=== PATIENT | female | born 1950 | race Caucasian/White ===

== ENCOUNTER → 2017-10-27 | Outpatient (CLI) | payer MEDICARE, OTHER ==
--- NOTE | 2017-10-30 17:24 | RADIOLOGY IMAGING REPORT ---
[place] [facility] [place] NAME: TIAGO MONTENEGRO : [id number] MR: [id number] V: [id number] EXAM DATE: ORDERING PHYSICIAN: LUCILLE GRANDE TECHNOLOGIST: Sana Gates PROCEDURE:BILATERAL DIGITAL SCREENING MAMMOGRAM WITH CAD ASSISTED INTERPRETATION & 3D TOMOSYNTHESIS COMPARISON:Prior mammograms 10/24/16, 10/23/15, 09/24/14, 10/07/13. INDICATIONS:SCREENING FINDINGS: A small amount of fibroglandular tissue is seen throughout the breasts. The parenchymal pattern has remained stable allowing for difference in mammographic technique & patient positioning. There is no evidence of malignant appearing mass, malignant appearing calcifications or other secondary sign of malignancy in either breast. DIAGNOSTIC CATEGORY 1--NEGATIVE. RECOMMENDATIONS: ROUTINE MAMMOGRAM AND CLINICAL EVALUATION. IMPRESSION: BIRADS 1: Negative. No significant abnormality is seen. Dictated by: Nancie Daniels M.D. on 10/30/2017 at 10:11 Transcribed by: MARCELLA on 10/30/2017 at 11:08 Approved by: Nancie Daniels M.D. on 10/30/2017 at 17:23 [facility]
== END ==
LOC: MAMO 02:59
PROVIDERS: ATTEND Nurse Practitioner Family
DX: Z12.31 Encounter for screening mammogram for malignant neoplasm of breast (principal)
CPT/HCPCS: 77063; 77067

== ENCOUNTER → 2018-02-05 | Outpatient (CLI) | payer MEDICARE ==
--- NOTE | 2018-02-05 09:05 | RADIOLOGY IMAGING REPORT ---
[place] [facility] [place] Leeann Beth : 1950 MR: [id number] V: [id number] EXAM DATE: ORDERING PHYSICIAN: LUCILLE GRANDE TECHNOLOGIST: Location: [facility] - [place] Patient: Leeann Beth : 1950 Visit/Account:[id number] Date of Sevice: 02/05/2018 Right upper abdomen ultrasound. HISTORY: Right upper quadrant pain, nausea and vomiting. COMPARISON: None. The liver measures 11.0 cm in sagittal length. The liver parenchyma is minimally heterogeneous. The l iver is free of focal defects. The surface of the liver is smooth. The portal vein is patent. No intr a or extrahepatic biliary dilatation. The gallbladder is unremarkable. The sonographic Dumont's sign is negative. The pancreas is unremarkable. The right kidney is normal in size. No hydronephrosis. No ascites. Portions of the abdominal aorta and inferior vena cava are obscured. The spleen and left kid antonie were not included. The common bile duct measures 4 mm in greatest AP diameter. IMPRESSION: Minimal fatty infiltration of the liver. Otherwise negative right upper abdomen. Report Dictated By: Rex Casillas MD at 02/05/2018 8:59 AM Report E-Signed By: Rex Casillas MD at 02/05/2018 9:00 AM WSN:[id number]
== END ==
LOC: US 01:07
PROVIDERS: ATTEND Nurse Practitioner Family
DX: K76.0 Fatty (change of) liver, not elsewhere classified (principal)
CPT/HCPCS: 76705

== ENCOUNTER → 2018-11-16 | Outpatient (CLI) | payer MEDICARE ==
--- NOTE | 2018-11-16 15:28 | RADIOLOGY IMAGING REPORT ---
FACILITY: [facility] - [place] PATIENT NAME: TIAGO MONTENEGRO : [id number] MR: [id number] V: [id number] EXAM DATE: ORDERING PHYSICIAN: LUCILLE GRANDE TECHNOLOGIST: Sana Gates PROCEDURE:BILATERAL DIAGNOSTIC DIGITAL MAMMOGRAM WITH CAD ASSISTED INTERPRETATION & 3D TOMOSYNTHESIS. REASON FOR STUDY: Right breast wound in the approximate 7 o'clock position. FAMILY HISTORY OF BREAST CANCER: None. BREAST PROCEDURES/TREATMENTS: Benign surgical biopsy of the Left breast. COMPARISON STUDIES: 10/27/17, 10/24/16, 10/23/15, 09/24/14. MAMMOGRAM VIEWS OBTAINED: Bilateral 2D & 3D full field CC & MLO projections. BREAST DENSITY: There are scattered areas of fibroglandular density throughout the breasts. MAMMOGRAM FINDINGS: In the approximate 8-9 o'clock position of the Right breast there is a small collection of air in the middle depth. This was not apparent on the prior study. The remainder of the parenchymal pattern has remained stable allowing for difference in mammographic technique & patient positioning. ULTRASOUND AREA SCANNED: The 6-9 o'clock position of the Right breast. ULTRASOUND FINDINGS: In the 8 o'clock position of the Right breast 7cm from the nipple there is a 1.4 x 1.2 x 0.2cm hypoechoic collection just beneath the skin in the location of patient's wound. There is a similar finding in the 6 o'clock position of the Right breast measuring 1 x 0.8 x 0.2cm. These likely represent skin lesions and would correspond to the mammographic findings. DIAGNOSTIC CATEGORY 2--BENIGN FINDING. RECOMMENDATIONS: ROUTINE MAMMOGRAM AND CLINICAL EVALUATION. IMPRESSION: BIRADS 2: Benign finding. There are 2 skin lesions in the 6 & 8 o'clock positions of the Right breast. Clinical follow-up recommended. Dictated by: Nancie Daniels M.D. on 11/16/2018 at 14:19 Transcribed by: MARCELLA on 11/16/2018 at 15:08 Approved by: Nancie Daniels M.D. on 11/16/2018 at 15:23 [facility]
--- NOTE | 2018-11-16 15:28 | RADIOLOGY IMAGING REPORT ---
FACILITY: [facility] PATIENT NAME: TIAGO MONTENEGRO : [id number] MR: [id number] V: [id number] EXAM DATE: [id number] ORDERING PHYSICIAN: LUCILLE GRANDE TECHNOLOGIST: Elva Mansfield RDMS(ABD,OBGYN,BR),RVT Caution: Report not yet finalized and possibly incomplete! PROCEDURE:BILATERAL DIAGNOSTIC DIGITAL MAMMOGRAM WITH CAD ASSISTED INTERPRETATION & 3D TOMOSYNTHESIS. REASON FOR STUDY: Right breast wound in the approximate 7 o'clock position. FAMILY HISTORY OF BREAST CANCER: None. BREAST PROCEDURES/TREATMENTS: Benign surgical biopsy of the Left breast. COMPARISON STUDIES: 10/27/17, 10/24/16, 10/23/15, 09/24/14. MAMMOGRAM VIEWS OBTAINED: Bilateral 2D & 3D full field CC & MLO projections. BREAST DENSITY: There are scattered areas of fibroglandular density throughout the breasts. MAMMOGRAM FINDINGS: In the approximate 8-9 o'clock position of the Right breast there is a small collection of air in the middle depth. This was not apparent on the prior study. The remainder of the parenchymal pattern has remained stable allowing for difference in mammographic technique & patient positioning. ULTRASOUND AREA SCANNED: The 6-9 o'clock position of the Right breast. ULTRASOUND FINDINGS: In the 8 o'clock position of the Right breast 7cm from the nipple there is a 1.4 x 1.2 x 0.2cm hypoechoic collection just beneath the skin in the location of patient's wound. There is a similar finding in the 6 o'clock position of the Right breast measuring 1 x 0.8 x 0.2cm. These likely represent skin lesions and would correspond to the mammographic findings. DIAGNOSTIC CATEGORY 2--BENIGN FINDING. RECOMMENDATIONS: ROUTINE MAMMOGRAM AND CLINICAL EVALUATION. IMPRESSION: BIRADS 2: Benign finding. There are 2 skin lesions in the 6 & 8 o'clock positions of the Right breast. Clinical follow-up recommended. Dictated by: Nancie Daniels M.D. on 11/16/2018 at 14:19 Transcribed by: MARCELLA on 11/16/2018 at 15:07 Approved by: Nancie Daniels M.D. on 11/16/2018 at 15:23 [facility]
== END ==
LOC: MAMO 00:40
PROVIDERS: ATTEND Nurse Practitioner Family
DX: N61.1 Abscess of the breast and nipple (principal); S21.001S Unspecified open wound of right breast, sequela
CPT/HCPCS: 77062; 77066